=== PATIENT | female | born 2000 | race Caucasian/White ===

== ENCOUNTER 2020-04-04 20:06 | Emergency (ER) | payer OTHER, SELFPAY ==
--- NOTE | 2020-04-04 20:57 | RAD ---
2 view chest: [04/04/2020] Comparison:None available HISTORY: Chest pain, allergy symptoms FINDINGS: Heart and mediastinal contours are grossly unremarkable. No pneumothorax or pleural fluid. No focal consolidation or alveolar edema. IMPRESSION: No acute findings.
[2020-04-05 17:12] LABS: SARS-CoV-2 MS2 Positive; SARS-CoV-2 N Gene Negative; SARS-CoV-2 S Gene Negative; SARS-CoV-2 by NAA Not Detected (NotDetected); SARS-CoV-2 orf1ab Negative
== END 2020-04-04 21:24 | disposition home or self-care (01) ==
LOC: NAV ERS 20:06
DX: J06.9 Acute upper respiratory infection, unspecified (principal); Z20.828 Contact with and (suspected) exposure to other viral communicable diseases; F41.9 Anxiety disorder, unspecified; F32.9 Major depressive disorder, single episode, unspecified; E03.9 Hypothyroidism, unspecified; Z87.891 Personal history of nicotine dependence
CPT/HCPCS: 71046; 87635; U0003

== ENCOUNTER 2025-05-19 18:22 | Emergency (ER) | payer OTHER ==
[2025-05-19] MEDS ORDERED: HYDROcodone/Acetaminophen 10/325 mg Tablet ONE (18:46)
[2025-05-19] MEDS ORDERED: Amoxicillin/Potassium Clav 875 MG TAB ONE (18:46)
== END 2025-05-19 19:05 | disposition home or self-care (01) ==
LOC: NAV ERS 18:22
DX: K04.7 Periapical abscess without sinus (principal); Z87.891 Personal history of nicotine dependence
CPT/HCPCS: 99282